=== PATIENT | female | born 1985 | race Asian ===

== ENCOUNTER 2017-12-07 05:15 | Day surgery (SDC) | payer OTHER ==
[~2017-12-07] VITALS: Ht 162.6 cm; Wt 98.7 kg
[2017-12-07] MEDS ORDERED: LACTATED RINGERS 1,000 ML IV SCH (06:11)
[2017-12-07] MEDS ORDERED: NONE PER PT (06:12)
[2017-12-07 06:33] VITALS: BP 126/81
[2017-12-07] MEDS ORDERED: MIDAZOLAM 1 MG/ML, 2ML ONE (06:46)
[2017-12-07] MEDS ORDERED: FENTANYL PF 250 MCG/5ML ONE (06:47)
[2017-12-07] MEDS ORDERED: PROPOFOL 10 MG/ML, 20ML ONE (06:49)
[2017-12-07] MEDS ORDERED: ROCURONIUM 10 MG/ML,10ML ONE (06:50)
[2017-12-07] MEDS ORDERED: CEFAZOLIN 1,000 MG ONE ×2 (06:51)
[2017-12-07] MEDS ORDERED: SODIUM CHLORIDE 0.9% PF 10ML ONE (06:51)
[2017-12-07] MEDS ORDERED: DEXAMETHASONE 4 MG/ML, 1ML ONE ×2 (06:52)
[2017-12-07] MEDS ORDERED: ONDANSETRON 2MG/ML, 2ML ONE (06:53)
[2017-12-07] MEDS ORDERED: BUPIVACAINE/PF 0.25% ONE (06:59)
[2017-12-07] MEDS ORDERED: MISOPROSTOL 200 MCG TABLET ONE (06:59)
[2017-12-07] MEDS ORDERED: EPINEPHRINE 1 MG/ML, 1ML ONE (07:00)
[2017-12-07] MEDS ORDERED: METHYLERGONOVINE 0.2 MG/ML IM ONE (07:00)
[2017-12-07] MEDS ORDERED: OXYTOCIN 10 UNITS/ML, 1ML ONE (07:00)
[2017-12-07] MEDS ORDERED: BUPIVACAINE/PF 0.25% INFIL ONE (07:19)
[2017-12-07] MEDS ORDERED: FENTANYL PF 100 MCG/2ML IV PRN (07:30)
[2017-12-07] MEDS ORDERED: OXYcodone 5 MG/5 ML ORAL.SOL UDC PO PRN (07:30)
[2017-12-07] MEDS ORDERED: morphine SULFATE 10 MG/ML, 1ML IV PRN (07:30)
[2017-12-07] MEDS ORDERED: ACETAMINOPHEN 325 MG TABLET PO PRN (07:30)
[2017-12-07] MEDS ORDERED: HYDROmorphone 1 MG/ML, 1ML IV PRN (07:30)
[2017-12-07] MEDS ORDERED: MEPERIDINE/PF 25MG/0.5ML IVPush PRN (07:30)
[2017-12-07] MEDS ORDERED: KETOROLAC 30 MG/1 ML ONE (07:33)
== END 2017-12-07 09:45 ==
LOC: OUT 05:15
PROVIDERS: ATTEND Obstetrics & Gynecology
DX: O02.1 Missed abortion (principal); Z3A.01 Less than 8 weeks gestation of pregnancy; G43.909 Migraine, unspecified, not intractable, without status migrainosus
CPT/HCPCS: 59820; 88305; J0171; J0690; J1100; J1885; J2210; J2250; J2405; J2704; J3010; J3490; J7120; J2590

== ENCOUNTER 2018-10-26 09:03 | Inpatient (IN) | payer OTHER ==
[~2018-10-26] VITALS: Ht 162.6 cm; Wt 104.1 kg
[~2018-10-26 09:03] MED LIST: NONE PER PT
[2018-10-26] MEDS ORDERED: OXYTOCIN 30U/ 0.9% NaCL 500ML 500 ML IV PRN (20:11)
[2018-10-26] MEDS ORDERED: D5%-LACTATED RINGERS 1,000 ML IV SCH (20:11)
[2018-10-26] MEDS ORDERED: OXYTOCIN 30U/ 0.9% NaCL 500ML 500 ML IV ONE (20:11)
[2018-10-26] MEDS ORDERED: MISOPROSTOL 25 MCG TABLET VG PRN (20:30)
[2018-10-26] MEDS ORDERED: SODIUM CITRATE/CITRIC ACID 30 ML UDC PO PRN (20:30)
[2018-10-26] MEDS ORDERED: ONDANSETRON 2MG/ML, 2ML IVPush PRN (20:30)
[2018-10-26] MEDS ORDERED: CALCIUM CARBONATE 500 MG TAB.CHEW PO PRN (20:30)
[2018-10-26] MEDS ORDERED: FENTANYL PF 100 MCG/2ML IV PRN (20:30)
[2018-10-26] MEDS ORDERED: MISOPROSTOL 25 MCG TABLET ONE (20:30)
[2018-10-26] MEDS ORDERED: TERBUTALINE 1 MG/ML, 1ML IVPush PRN (20:30)
[2018-10-26] MEDS ORDERED: METOCLOPRAMIDE 5 MG/ML, 2ML IVPush PRN (20:30)
[2018-10-26] MEDS ORDERED: FENTANYL PF 100 MCG/2ML IVPush PRN (20:30)
[2018-10-26 20:32] LABS: BASOPHILS # (AUTO) 0.03 x10^3/uL (0-0.1); BASOPHILS % (AUTO) 0 % (0-1); EOSINOPHILS # (AUTO) 0.09 x10^3/uL (0-0.4); EOSINOPHILS % (AUTO) 1 % (1-7); LYMPHOCYTES # (AUTO) 1.72 x10^3/uL (1-3.4); LYMPHOCYTES % (AUTO) 19 % (22-44); MD NO; MEAN CORPUSCULAR HEMOGLOBIN 29.8 pg (27.0-34.8); MEAN CORPUSCULAR HGB CONC 34.2 g/dL (32.4-35.8); MEAN PLATELET VOLUME 10.6 fL (7.4-10.4); MONOCYTES # (AUTO) 0.42 x10^3/uL (0.2-0.8); MONOCYTES % (AUTO) 5 % (2-9); NEUTROPHILS # (AUTO) 6.81 x10^3/uL (1.8-6.8); NEUTROPHILS % (AUTO) 75 % (42-75); PLATELET COUNT 211 x10^3/uL (130-400); RED BLOOD COUNT 3.94 x10^6/uL (3.82-5.3); RED CELL DISTRIBUTION WIDTH 13.9 % (9.6-15.2)
[2018-10-26] MEDS ORDERED: NEWBORN KIT ONE (20:45)
[2018-10-26] MEDS ORDERED: LIDOCAINE 1%, 20ML ONE (20:45)
[2018-10-26] MEDS ORDERED: MISOPROSTOL 200 MCG TABLET ONE (20:46)
[2018-10-26] MEDS ORDERED: OXYTOCIN 30U/ 0.9% NaCL 500ML 500 ML ONE (20:46)
[2018-10-26 21:02] LABS: ALANINE AMINOTRANSFERASE 20 U/L (12-78); ALBUMIN 2.6 g/dL (3.4-5.0); ANION GAP 8 mmol/L (5-15); CALCIUM 8.5 mg/dL (8.5-10.1); CHLORIDE 106 mmol/L (98-107); CREATININE 0.93 mg/dL (0.55-1.02)
[2018-10-26 21:03] LABS: BILIRUBIN, DIRECT < 0.1 mg/dL (0.1-0.2)
[2018-10-26 21:05] LABS: ALKALINE PHOSPHATASE 170 U/L (45-117); BILIRUBIN,TOTAL 0.1 mg/dL (0.2-1.0)
[2018-10-27] MEDS ORDERED: CALCIUM CARBONATE 500 MG TAB.CHEW ONE
[2018-10-27] MEDS: LACTATED RINGERS 1,000 ML IV SCH ×6 (00:04→23:47)
[2018-10-27] MEDS ORDERED: FENTANYL PF 100 MCG/2ML ONE (02:54)
[2018-10-27] MEDS ORDERED: FENTANYL/BUPIV./NS/PF 250 ML EPIDCONT SCH (02:57)
[2018-10-27] MEDS ORDERED: ONDANSETRON 2MG/ML, 2ML ONE ×2 (03:10→14:40)
[2018-10-27] MEDS ORDERED: FENTANYL/BUPIV./NS/PF 250 ML EPIDCONT ONE (03:36)
[2018-10-27] MEDS ORDERED: BUPIVACAINE 0.25% ONE (03:38)
[2018-10-27] MEDS ORDERED: TERBUTALINE 1 MG/ML, 1ML ONE (04:40)
[2018-10-27] MEDS ORDERED: PREN1TAB60 PO (07:48)
[2018-10-27 07:54] VITALS: BP 143/81
[2018-10-27] MEDS ORDERED: ACETAMINOPHEN 325 MG TABLET ONE (10:26)
[2018-10-27] MEDS ORDERED: ACETAMINOPHEN 325 MG TABLET PO PRN ×3 (10:30→16:00)
[2018-10-27] MEDS ORDERED: LACTATED RINGERS 1,000 ML IV SCH ×2 (14:13→14:30)
[2018-10-27] MEDS ORDERED: OXYTOCIN 30U/ 0.9% NaCL 500ML 500 ML IV SCH (14:13)
[2018-10-27] MEDS ORDERED: METOCLOPRAMIDE 5 MG/ML, 2ML ONE (14:13)
[2018-10-27] MEDS ORDERED: SODIUM CITRATE/CITRIC ACID 30 ML UDC ONE (14:13)
[2018-10-27] MEDS ORDERED: LACTATED RINGERS 1,000 ML IVBOLUS ONE (14:30)
[2018-10-27] MEDS ORDERED: AZITHROMYCIN 500 MG in SODIUM CHLORIDE 0.9% 250 ML IV ONE (14:30)
[2018-10-27] MEDS ORDERED: LIDOCAINE/MPF 2%-EPI 1:200K, 20 ML ONE (14:31)
[2018-10-27] MEDS ORDERED: DEXAMETHASONE 4 MG/ML, 1ML ONE (14:40)
[2018-10-27] MEDS ORDERED: CEFAZOLIN 1,000 MG ONE (14:40)
[2018-10-27] MEDS ORDERED: OXYTOCIN 10 UNITS/ML, 1ML ONE (14:40)
[2018-10-27] MEDS ORDERED: WATER-INJECTION,STERILE 10 ML IV ONE (14:40)
[2018-10-27] MEDS ORDERED: KETOROLAC 30 MG/1 ML ONE (14:40)
[2018-10-27] MEDS ORDERED: morphine SULFATE/PF 0.5 MG/ML, 10ML ONE (14:47)
[2018-10-27] MEDS ORDERED: SODIUM CHLORIDE 0.9% PF 10ML ONE (14:51)
[2018-10-27] MEDS ORDERED: PHENYLEPHRINE 10 MG/ML ONE (14:51)
[2018-10-27] MEDS: OXYTOCIN 30U/ 0.9% NaCL 500ML 500 ML IV SCH (15:47)
[2018-10-27] MEDS ORDERED: morphine SULFATE 10 MG/ML, 1ML ONE (15:54)
[2018-10-27] MEDS ORDERED: OXYcodone IR 5MG TABLET PO PRN (16:00)
[2018-10-27] MEDS ORDERED: NO SEDATIVES, TRANQUILIZERS OR ANTIEMETICS XX SCH (16:00)
[2018-10-27] MEDS ORDERED: OXYcodone/APAP 5/325MG TABLET PO PRN (16:00)
[2018-10-27] MEDS ORDERED: NALOXONE 0.4 MG/ML, 1ML IV PRN (16:00)
[2018-10-27] MEDS ORDERED: morphine SULFATE 10 MG/ML, 1ML IVPush PRN ×2 (16:00→19:30)
[2018-10-27] MEDS ORDERED: KETOROLAC 30 MG/1 ML IV PRN (16:00)
[2018-10-27] MEDS ORDERED: RHOGAM FROM BLOOD BANK 1 NOTE EA IM/IV ONE (16:00)
[2018-10-27] MEDS ORDERED: MEASLES,MUMPS&RUBELLA VACC/PF 0.5 ML SQ-VACC PRN (16:00)
[2018-10-27] MEDS ORDERED: ONDANSETRON 2MG/ML, 2ML IVPush PRN (16:00)
[2018-10-27] MEDS ORDERED: MISOPROSTOL 200 MCG TABLET PR PRN (16:00)
[2018-10-27] MEDS ORDERED: EPHEDRINE 50 MG/ML, 1ML IVPush PRN (16:00)
[2018-10-27] MEDS ORDERED: ONDANSETRON 2MG/ML, 2ML IV PRN (16:00)
[2018-10-27] MEDS ORDERED: CALCIUM CARBONATE 500 MG TAB.CHEW PO PRN (16:00)
[2018-10-27] MEDS ORDERED: DIPHENHYDRAMINE 50 MG/ML, 1ML IV PRN (16:00)
[2018-10-27] MEDS ORDERED: METOCLOPRAMIDE 5 MG/ML, 2ML IV PRN (16:00)
[2018-10-27] MEDS: morphine SULFATE 10 MG/ML, 1ML IVPush PRN ×2 (16:01→17:43)
[2018-10-27 18:00] VITALS: BP 116/78
[2018-10-27 20:00] VITALS: BP 117/80
[2018-10-27] MEDS: KETOROLAC 30 MG/1 ML IVPush SCH (21:34)
[2018-10-27 23:50] VITALS: BP 113/78
[2018-10-28] MEDS: LACTATED RINGERS 1,000 ML IV SCH ×6 (01:47→23:47)
[2018-10-28] MEDS: OXYTOCIN 30U/ 0.9% NaCL 500ML 500 ML IV SCH ×3 (01:47→21:47)
[2018-10-28] MEDS: KETOROLAC 30 MG/1 ML IVPush SCH ×2 (03:04→10:01)
[2018-10-28 03:33] LABS: BASOPHILS # (AUTO) 0.04 x10^3/uL (0-0.1); BASOPHILS % (AUTO) 0 % (0-1); EOSINOPHILS # (AUTO) 0.04 x10^3/uL (0-0.4); EOSINOPHILS % (AUTO) 0 % (1-7); LYMPHOCYTES # (AUTO) 1.33 x10^3/uL (1-3.4); LYMPHOCYTES % (AUTO) 10 % (22-44); MD NO; MEAN CORPUSCULAR HEMOGLOBIN 29.6 pg (27.0-34.8); MEAN CORPUSCULAR HGB CONC 33.8 g/dL (32.4-35.8); MEAN CORPUSCULAR VOLUME 87.6 fL (80-100); MEAN PLATELET VOLUME 9.9 fL (7.4-10.4); MONOCYTES # (AUTO) 0.78 x10^3/uL (0.2-0.8); MONOCYTES % (AUTO) 6 % (2-9); NEUTROPHILS # (AUTO) 11.46 x10^3/uL (1.8-6.8); NEUTROPHILS % (AUTO) 84 % (42-75); PLATELET COUNT 157 x10^3/uL (130-400); RED CELL DISTRIBUTION WIDTH 13.9 % (9.6-15.2)
[2018-10-28 07:30] VITALS: BP 107/69
[2018-10-28] MEDS: DOCUSATE 100 MG CAPSULE PO PRN ×2 (07:52→20:32)
[2018-10-28] MEDS: PRENATAL VIT/IRON/FA 1 EACH TABLET PO SCH (07:52)
[2018-10-28] MEDS: SIMETHICONE 80 MG CHEW TAB PO PRN (07:55)
[2018-10-28] MEDS: FERROUS SULFATE 325 MG TABLET PO SCH (10:01)
[2018-10-28] MEDS: morphine SULFATE 10 MG/ML, 1ML IVPush PRN (11:30)
[2018-10-28 12:20] VITALS: BP 108/83
[2018-10-28] MEDS: IBUPROFEN 600 MG TABLET PO PRN ×2 (16:21→22:10)
[2018-10-28] MEDS: OXYcodone IR 5MG TABLET PO PRN ×2 (16:22→20:32)
[2018-10-28 20:20] VITALS: BP 127/89
[2018-10-29] MEDS: OXYcodone IR 5MG TABLET PO PRN ×5 (00:37→19:25)
[2018-10-29] MEDS: IBUPROFEN 600 MG TABLET PO PRN ×2 (06:04→15:11)
[2018-10-29 07:45] VITALS: BP 138/86
[2018-10-29] MEDS: OXYTOCIN 30U/ 0.9% NaCL 500ML 500 ML IV SCH ×2 (07:47→17:47)
[2018-10-29] MEDS: LACTATED RINGERS 1,000 ML IV SCH ×5 (07:47→23:47)
[2018-10-29] MEDS: DOCUSATE 100 MG CAPSULE PO PRN ×2 (08:56→19:24)
[2018-10-29] MEDS: FERROUS SULFATE 325 MG TABLET PO SCH (08:56)
[2018-10-29] MEDS: PRENATAL VIT/IRON/FA 1 EACH TABLET PO SCH (08:56)
[2018-10-29] MEDS: SIMETHICONE 80 MG CHEW TAB PO PRN (11:05)
[2018-10-29 12:30] VITALS: BP 133/91
[2018-10-29 21:00] VITALS: BP 129/84
[2018-10-30] MEDS: IBUPROFEN 600 MG TABLET PO PRN ×3 (00:08→13:31)
[2018-10-30] MEDS: OXYcodone IR 5MG TABLET PO PRN ×3 (00:08→11:09)
[2018-10-30] MEDS: LACTATED RINGERS 1,000 ML IV SCH (03:47)
[2018-10-30] MEDS: OXYTOCIN 30U/ 0.9% NaCL 500ML 500 ML IV SCH (03:47)
[2018-10-30 07:05] VITALS: BP 137/92
[2018-10-30] MEDS: PRENATAL VIT/IRON/FA 1 EACH TABLET PO SCH (07:58)
[2018-10-30] MEDS: DOCUSATE 100 MG CAPSULE PO PRN (07:58)
[2018-10-30] MEDS: FERROUS SULFATE 325 MG TABLET PO SCH (07:58)
[2018-10-30] MEDS ORDERED: IBUP-1222 PO (10:51)
[2018-10-30] MEDS ORDERED: oxycodone PO (10:53)
[2018-10-30] MEDS ORDERED: iron PO (10:55)
[2018-10-30] MEDS ORDERED: SENN-92 PO (10:56)
== END 2018-10-30 16:08 | disposition home or self-care (01) | DRG 788 ==
LOC: LDIP 20:09 → 2NW 10-27 18:00
PROVIDERS: ADMIT Obstetrics & Gynecology; ATTEND Obstetrics & Gynecology
PROC: 10H07YZ Insertion of Other Device into Products of Conception, Via Natural or Artificial Opening (ICD-10-PCS; 2018-10-26)
PROC: 10D00Z1 Extraction of Products of Conception, Low, Open Approach (ICD-10-PCS; principal; 2018-10-27)
DX: O62.1 Secondary uterine inertia (principal); O48.0 Post-term pregnancy; Z3A.41 41 weeks gestation of pregnancy; Z37.0 Single live birth; Z82.62 Family history of osteoporosis; O77.0 Labor and delivery complicated by meconium in amniotic fluid; O99.03 Anemia complicating the puerperium; D64.9 Anemia, unspecified
CPT/HCPCS: 36415; J7121; 80053; 82248; 84550; 85025; 86850; 86900; G0378; J0456; J0690; J1100; J1885; J2274; J2405; J3010; J3490; J2270; J2370; J2590; J2765; J7050; J7120